=== PATIENT | female | born 1990 | race Two or more races ===

== ENCOUNTER 2020-02-01 21:45 | Emergency (ER) | payer OTHER ==
[2020-02-01 23:44] LABS: APPEARANCE,URINE SLIGHTLY-CLOUDY; BILIRUBIN,URINE NEGATIVE (NEGATIVE); COLOR,URINE AMBER; GLUCOSE, URINE NEGATIVE (NEGATIVE); KETONES,URINE NEGATIVE (NEGATIVE); LEUKOCYTE ESTERASE,URINE NEGATIVE (NEGATIVE); NITRITE,URINE POSITIVE (NEGATIVE); PROTEIN,URINE 30 mg/dL (NEGATIVE); URINE SPECIFIC GRAVITY 1.015
[2020-02-01] MEDS ORDERED: CEPHALEXIN 500 MG CAPSULE PO ONE (23:53)
[2020-02-01] MEDS ORDERED: AMOXICILLIN TRIHYDRATE 500 MG CAPSULE PO ONE (23:55)
--- NOTE | 2020-02-01 23:58 | ER Document Report ---
HPI - HPI Time Seen by Provider: 02/01/20 22:42 Pain Level: 1 Notes: Otherwise healthy 30-year-old female presents emergency department chief complaint of dysuria, right ear pain and a sore in her mouth. Patient reports symptoms ongoing for the last couple of days. She denies any fever, chills, nausea, vomiting or diarrhea. - EENT EENT: REPORTS: Ear Pain Notes: Sore under tongue - URINARY Urinary: REPORTS: Dysuria, Frequency - REPRODUCTIVE LMP: 01/25/20 Past Medical History - General Information source: Patient - Social History Smoking Status: Never Smoker Frequency of alcohol use: None Drug Abuse: None Family History: None Patient has homicidal ideation: No - Medical History Medical History: Negative Surgical Hx: Negative - Immunizations Immunizations up to date: Yes Vertical Provider Document - CONSTITUTIONAL Notes: PHYSICAL EXAMINATION: GENERAL: Well-appearing, well-nourished and in no acute distress. HEAD: Atraumatic, normocephalic. EYES: Pupils equal round and reactive to light, extraocular movements intact, conjunctiva are normal. ENT: Nares patent, oropharynx clear without exudates. Moist mucous membranes. Right TM bulging, erythematous. No mastoid tenderness. Left TM and canal unremarkable. NECK: Normal range of motion, supple without lymphadenopathy LUNGS: Breath sounds clear to auscultation bilaterally and equal. No wheezes rales or rhonchi. HEART: Regular rate and rhythm without murmurs ABDOMEN: Soft, nontender, nondistended abdomen. No guarding, no rebound. No masses appreciated. Female : No CVA tenderness Musculoskeletal: Normal range of motion, no pitting or edema. No cyanosis. NEUROLOGICAL: Cranial nerves grossly intact. Normal speech, normal gait. Normal sensory, motor exams PSYCH: Normal mood, normal affect. SKIN: Warm, Dry, normal turgor, no rashes or lesions noted. Course - Re-evaluation Re-evalutation: Patient appears well, nontoxic, urinalysis consistent with UTI. Patient also has otitis media. She does have what appears to be a canker sore under her tongue. She was encouraged to swish with salt water for this. She will follow- up with her primary care provider. - Vital Signs Vital signs: Temp Pulse Resp BP Pulse Ox 98.4 F 70 18 110/65 100 02/01/20 22:09 02/01/20 22:09 02/01/20 22:09 02/01/20 22:09 02/01/20 22:09 - Laboratory Laboratory results interpreted by me: 02/01/20 23:21 Urine Protein 30 H Urine Blood MODERATE H Urine Nitrite POSITIVE H Urine Urobilinogen 4.0 H Discharge - Discharge Clinical Impression: Otitis media, UTI (urinary tract infection) Condition: Stable Disposition: HOME, SELF-CARE Instructions: Otitis Media ([facility]), Urinary Tract Infection ([facility]) Additional Instructions: Please take medications as prescribed. For the sore in your mouth please gargle with salt water. Follow-up with your primary care provider to have your urine rechecked in 1 week. Return to the emergency department any new or worsening symptoms. Prescriptions: Amoxicillin 1 tab PO TID #30 tab Fluconazole [Diflucan] 150 mg PO ONCE PRN #1 tablet PRN Reason: Cephalexin [Keflex] 500 mg PO BID #14 capsule
[2020-02-02 00:51] VITALS: BP 112/75
== END 2020-02-02 00:15 | disposition home or self-care (01) ==
LOC: ER 21:45
DX: N39.0 Urinary tract infection, site not specified (principal); H66.90 Otitis media, unspecified, unspecified ear; K13.79 Other lesions of oral mucosa; R30.0 Dysuria; H92.01 Otalgia, right ear
CPT/HCPCS: 81001; 87086; 99283